=== PATIENT | male | born 1995 | race Caucasian/White ===

== ENCOUNTER 2017-01-16 01:02 | Emergency (ER) | payer OTHER ==
[~2017-01-16] VITALS: Ht 190.5 cm; Wt 95.0 kg
--- NOTE | 2017-01-16 04:30 | REPUSA ---
CLINICAL HISTORY: Head trauma. TECHNIQUE: Multiple axial brain CT scan sections were obtained from base to vertex without contrast a dministration. COMMENTS: There is no evidence of skull fracture. The study shows normal configuration of sella turcica. There are no intra or extra-axial collections. There is no mass effect or midline shift. There is no evidence of hematoma formation. No hydrocephal us is present. No abnormal calcifications are noted. No significant abnormalities are seen either in the posterior fossa or supratentorial compartment. The mastoid air cells are patent. Bilateral ethmoid and maxillary sinusitis is seen. IMPRESSION: No evidence of acute intracranial pathology. No intracranial hemorrhage or skull fracture. Thank you for your kind referral of this patient.
--- NOTE | 2017-01-16 04:40 | REPUSA ---
CLINICAL HISTORY: Neck pain. Trauma. TECHNIQUE: Multiple axial images were obtained through the cervical spine. Images were also reconstru cted in coronal and sagittal planes. The study was performed without IV contrast. COMMENTS: There is no fracture or spondylolisthesis visualized. The paraspinal soft tissues are unremarkable. T here are no lytic or blastic lesions. Straightening of cervical lordosis is seen, suggesting muscular spasm. There is evidence of minimal m ultilevel disk disease, demonstrated by minimal osteophytosis and endplate sclerosis. No significant disk herniation is noted at any level. Canal and foramina remain patent. IMPRESSION: 1. No fracture or spondylolisthesis. 2. Straightening of cervical lordosis is seen, suggesting muscular spasm. 3. Minimal multilevel spondylosis. Thank you for your kind referral of this patient.
[2017-01-16] MEDS ORDERED: MORPHINE 10 MG/ML 1ML VIAL IM ONE (04:45)
--- NOTE | 2017-01-16 04:50 | REPUSA ---
HISTORY: Trauma. TECHNIQUE: Multiple thin section helically-acquired axially-displayed and helically acquired coronall y displayed computed tomographic images of the face are obtained from the mandible through the fronta l sinuses, with images obtained at soft tissue and bone window. 2D reformatted images were performed. FINDINGS: Diffuse facial swelling is seen. Left parietal scalp swelling/hematoma is seen. Right central incisor tooth is loose. 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 Chronic ethmoid sinusitis is noted. Normal bony mineralization. No fractures. Normal orbits. Normal oral and nasal cavities. Normal infratemporal fossa and deep parapharyngeal spaces with normal muscles of mastication. Normal parotid and submandibular glands. IMPRESSION: Diffuse facial swelling is seen. Left parietal scalp swelling/hematoma is seen. Right central incisor tooth is loose. 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 Thank you for your kind referral of this patient
[2017-01-16] MEDS ORDERED: BUPIVACAINE HCL 0.5% 10 ML VIAL SC ONE (06:30)
[2017-01-16] MEDS ORDERED: LIDOCAINE W/EPINEPHRINE 1% 20ML VIAL SC ONE (06:30)
[2017-01-16] MEDS ORDERED: CLIN150C14 PO (06:55)
[2017-01-16 07:23] VITALS: BP 145/88
== END 2017-01-16 07:26 | disposition home or self-care (01) ==
LOC: EDBD 01:02 → M ED 03:35
DX: S01.91XA Laceration without foreign body of unspecified part of head, initial encounter (principal); S01.512A Laceration without foreign body of oral cavity, initial encounter; Y04.8XXA Assault by other bodily force, initial encounter; V29.9XXA Motorcycle rider (driver) (passenger) injured in unspecified traffic accident, initial encounter; Y92.89 Other specified places as the place of occurrence of the external cause; Y93.89 Activity, other specified; Y99.9 Unspecified external cause status; M47.899 Other spondylosis, site unspecified; R22.0 Localized swelling, mass and lump, head; K08.89 Other specified disorders of teeth and supporting structures; M95.0 Acquired deformity of nose